=== PATIENT | female | born 1960 | race Caucasian/White ===

== ENCOUNTER 2017-07-30 13:43 | Emergency (ER) | payer OTHER ==
[~2017-07-30] VITALS: Ht 167.6 cm; Wt 127.0 kg
--- OUTSIDE RECORDS SUMMARY | ~2017-07-30 | XMS | Clinical Summary ---
Demographics + + + | Address | [address] | | | [place] [address] | + + + | Home Phone | | + + + | Preferred Language | Unknown | + + + | Marital Status | Single | + + + | Jehovah'S Witness Affiliation | COG | + + + | Race | White | + + + | Ethnic Group | Not or | + + + Author + + + | Author | NON REVENUE LOCATIONS | + + + | Organization | NON REVENUE LOCATIONS | + + + | Address | Unknown | + + + | Phone | Unavailable | + + + Support + + +---------+ + | Name | Relationship | Address | Phone | + + +---------+ + | DAYRON WARREN | ECON | Unknown | | + + +---------+ + Care Team Providers + +------+ + | Care Gallery Or Museum Technician Name | Role | Phone | + +------+ + | Danny Howe MD | PP | | + +------+ + Source Comments JENELLE is fully live on both [facility] Ambulatory and [facility] InPatient.[facility] Allergies + + + + + + | Active Allergy | Reactions | Severity | Noted | Comments | | | | | Date | | + + + + + + | Codeine | Pruritus | | 10/08/19 | | | | | | 13 | | + + + + + + | Morphine | Airway Constriction | | 10/08/19 | Patient had to be | | | | | 13 | intubated in the | | | | | | past. | + + + + + + Current Medications + + +-------+---------+------+------+-------+ | Prescription | Sig. | Disp. | Refills | Star | End | Statu | | | | | | t | Date | s | | | | | | Date | | | + + +-------+---------+------+------+-------+ | METFORMIN HCL | Take by mouth two | | | | | Activ | | (METFORMIN ORAL) | times daily. | | | | | e | + + +-------+---------+------+------+-------+ | | Take by mouth once | | | | | Activ | | HYDROCHLOROTHIAZIDE | daily in the | | | | | e | | ORAL | morning. | | | | | | + + +-------+---------+------+------+-------+ | METOPROLOL | Take by mouth once | | | | | Activ | | SUCCINATE ORAL | daily in the | | | | | e | | | morning. | | | | | | + + +-------+---------+------+------+-------+ | VILAZODONE | Take by mouth once | | | | | Activ | | HYDROCHLORIDE | daily in the | | | | | e | | (VIIBRYD ORAL) | morning. | | | | | | + + +-------+---------+------+------+-------+ Active Problems + + + | Problem | Noted Date | + + + | Pelvic pain in female | 10/07/2012 | + + + Family History + + +------+ + | Medical History | Relation | Name | Comments | + + +------+ + | Heart Attack | Father | | | + + +------+ + | Heart Attack | Uncle | | | + + +------+ + + +------+--------+ + | Relation | Name | Status | Comments | + +------+--------+ + | Father | | | | + +------+--------+ + | Uncle | | | | + +------+--------+ + Social History + +-------+ +--------+ + | Tobacco Use | Types | Packs/Day | Years | Date | | | | | Used | | + +-------+ +--------+ + | Former Smoker | | | | Quit: 10/07/1985 | + +-------+ +--------+ + + + | Comments: Smoked age [age] | + + + + +---------+ + | Alcohol Use | Drinks/We | oz/Week | Comments | | | ek | | | + + +---------+ + | No | | | | + + +---------+ + + + + | Sex Assigned at | Date Recorded | | | | + + + | Not on file | | + + + Last Filed Vital Signs + + + + | Vital Sign | Reading | Time Taken | + + + + | Blood Pressure | 110/72 | 10/07/2012 8:14 AM PDT | + + + + | Pulse | - | - | + + + + | Temperature | 36.4 C (97.6 F) | 10/07/2012 8:14 AM PDT | + + + + | Respiratory Rate | - | - | + + + + | Oxygen Saturation | - | - | + + + + | Inhaled Oxygen | - | - | | Concentration | | | + + + + | Weight | 112.7 kg (248 lb 6.4 | 10/07/2012 8:14 AM PDT | | | oz) | | + + + + | Height | 167.6 cm (5' 6") | 10/07/2012 8:14 AM PDT | + + + + | Body Mass Index | 40.09 | 10/07/2012 8:14 AM PDT | + + + + Plan of Treatment + + + + + | Health Maintenance | Due Date | Last Done | Comments | + + + + + | MAMMOGRAM | | | | | | 2 | | | + + + + + | INFLUENZA VACCINE | | | | | (FLU SHOT) | 7 | | | + + + + + Results Not on filefrom Last 3 Months
--- OUTSIDE RECORDS SUMMARY | ~2017-07-30 | XMS | Clinical Summary ---
Demographics + + + | Address | [address] | | | [place] [address] | + + + | Home Phone | | + + + | Preferred Language | Unknown | + + + | Marital Status | Single | + + + | Restoration Affiliation | COG | + + + [...] Team Providers + +------+ + | Care Rivet Machine Operator Name | Role | Phone | + +------+ + | Danny Howe MD | PP | | + +------+ + Source Comments JENELLE is fully live on both [facility] Ambulatory and [facility] InPatient.[facility] Allergies + + + + + + [...]
[~2017-07-30 13:43] MED LIST: ABILIFY5 MG PO; BACTRIM DS TAB1 EACH PO; BUPROPION XL150 MG PO; FIORINAL 50-321 EACH PO; HYDROCHLOROTH12.5 MG PO; KEFLEX500 MG PO; METFORMIN HCL500 MG PO; METHYLPHENIDATE10 M1 PO; METOPROLOL SUCC25 MG PO; NORCO 5-325 TA1 EACH PO; VIIBRYD40 MG PO; ZOFRAN4 MG PO
[2017-07-30] MEDS ORDERED: ROSUVASTATIN CAL5 MG PO (13:54)
== END 2017-07-30 15:30 | disposition home or self-care (01) ==
LOC: ED 13:43
DX: S63.502A Unspecified sprain of left wrist, initial encounter (principal); E11.9 Type 2 diabetes mellitus without complications; I10 Essential (primary) hypertension; Z88.5 Allergy status to narcotic agent; Z79.899 Other long term (current) drug therapy; W18.30XA Fall on same level, unspecified, initial encounter
CPT/HCPCS: 73110; 99283

== ENCOUNTER 2019-08-04 18:02 | Emergency (ER) | payer OTHER ==
[~2019-08-04] VITALS: Ht 167.6 cm; Wt 131.1 kg
[~2019-08-04 18:02] MED LIST changes: +ROSUVASTATIN CAL5 MG PO
--- OUTSIDE RECORDS SUMMARY | 2019-08-04 18:04 | XMS ---
PreManage Notification: KEVIN MCKENZIE Security Payroll Supervisor Events No recent Security Events currently on file [facility] There are no care providers on record at this time. [place] has no Care Guidelines for this patient. [place] VISIT COUNT (12 MO.) 1 [facility] TOTAL 1 NOTE: Visits indicate total known visits. ED/C VISIT TRACKING (12 MO.) 08/04/2019 18:02 [facility] [place] TYPE: Emergency COMPLAINT: - CHEST PAIN INPATIENT VISIT TRACKING (12 MO.) No inpatient visits to display in this time frame [email or web address]
--- NOTE | 2019-08-04 20:57 | EKG ---
[facility] [address] [place] [address] Signed Normal sinus rhythm Normal ECG No previous ECGs available Confirmed by CARO LEYVA MD ([id number]) on 08/04/2019 8:57:42 PM Electronically Signed By: CARO LEYVA MD 08/04/192056 PATIENT NAME: KEVIN MCKENZIE Electrocardiogram DATE OF : 62 PHYSICIAN: CARO LEYVA MD REPORT #: [id number] REPORT IS CONFIDENTIAL AND NOT TO BE RELEASED WITHOUT AUTHORIZATION
== END 2019-08-04 21:50 | disposition home or self-care (01) ==
LOC: ED 18:02
DX: R07.9 Chest pain, unspecified (principal); I10 Essential (primary) hypertension; Z87.891 Personal history of nicotine dependence; Z88.5 Allergy status to narcotic agent; Z79.899 Other long term (current) drug therapy
CPT/HCPCS: 71045; 80053; 83735; 84484; 85025; 93005; 93010; 99285-25

== ENCOUNTER 2020-07-06 09:49 | Emergency (ER) | payer OTHER ==
[~2020-07-06] VITALS: Ht 167.6 cm; Wt 131.1 kg
[2020-07-06] MEDS ORDERED: ESCITALOPRAM OX20 MG PO (10:16)
[2020-07-06] MEDS ORDERED: BUPROPION XL150 MG PO (10:16)
[2020-07-06] MEDS ORDERED: HYDROCHLOROTH12.5 MG PO (10:16)
[2020-07-06] MEDS ORDERED: PEPCID20 MG PO (12:16)
[2020-07-06] MEDS ORDERED: MEDROL4 M1 PO (12:16)
--- NOTE | 2020-07-06 15:31 | EKG ---
[facility] [address] [place], [place] [address] Signed Sinus rhythm with occasional premature ventricular complexes Otherwise normal ECG Confirmed by ANGELA BROWNE DO ([id number]) on 07/06/2020 3:31:10 PM Electronically Signed By: ANGELA BROWNE DO 07/06/20 1531 PATIENT NAME: KEVIN WARREN Electrocardiogram DATE OF : 62 PHYSICIAN: ANGELA BROWNE DO REPORT #: [id number] REPORT IS CONFIDENTIAL AND NOT TO BE RELEASED WITHOUT AUTHORIZATION
== END 2020-07-06 12:30 | disposition home or self-care (01) ==
LOC: ED 09:49
DX: T80.62XA Other serum reaction due to vaccination, initial encounter (principal); R13.10 Dysphagia, unspecified; T50.B95A Adverse effect of other viral vaccines, initial encounter; R06.00 Dyspnea, unspecified; E11.9 Type 2 diabetes mellitus without complications; I10 Essential (primary) hypertension; Z87.891 Personal history of nicotine dependence; Z88.5 Allergy status to narcotic agent; Z79.899 Other long term (current) drug therapy
CPT/HCPCS: 71045; 93005; 93010; 96374; 96375; 99284-25; J1100; J2405

== ENCOUNTER 2020-09-18 17:46 | Emergency (ER) | payer OTHER ==
[~2020-09-18] VITALS: Ht 167.6 cm; Wt 131.1 kg
[~2020-09-18 17:46] MED LIST changes: +ESCITALOPRAM OX20 MG PO; +MEDROL4 M1 PO; +PEPCID20 MG PO
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
== END 2020-09-18 18:54 | disposition home or self-care (01) ==
LOC: ED 17:46
DX: T18.9XXA Foreign body of alimentary tract, part unspecified, initial encounter (principal); E11.9 Type 2 diabetes mellitus without complications; I10 Essential (primary) hypertension; Z88.5 Allergy status to narcotic agent; Z79.899 Other long term (current) drug therapy; Z79.52 Long term (current) use of systemic steroids
CPT/HCPCS: 99283

== ENCOUNTER 2020-12-29 15:57 | Emergency (ER) | payer OTHER ==
[~2020-12-29] VITALS: Ht 167.6 cm; Wt 124.7 kg
--- OUTSIDE RECORDS SUMMARY | 2020-12-29 16:00 | XMS ---
PreManage Notification: KEVIN WARREN Security Tip Fixer Events No recent Security Events currently on file CRITERIA MET - PDMP CARE PROVIDERS [facility] [place] Internal [facility] 08/05/2019-Current PHONE: [phone] [place] has no Care Guidelines for this patient. [place] VISIT COUNT (12 MO.) 3 [facility] TOTAL 3 NOTE: Visits indicate total known visits. ED/UCC VISIT TRACKING (12 MO.) 12/29/2020 15:58 [facility] [place] TYPE: Emergency COMPLAINT: - FEVER, DIZZINESS, CHILLS 09/18/2020 17:47 [facility] [place] TYPE: Emergency COMPLAINT: - SWALLOED FOREIGN OBJECY DIAGNOSES: - half-way (current) use of systemic steroids - Foreign body of alimentary tract, part unspecified, initial encounter - Type 2 diabetes mellitus without complications - Essential (primary) hypertension - Allergy status to narcotic agent - Other ferry terminal agent (current) drug therapy 07/06/2020 09:50 [facility] [place] TYPE: Emergency COMPLAINT: - ALLERGIC REACTION DIAGNOSES: - Allergy status to narcotic agent - Essential (primary) hypertension - Dysphagia, unspecified - Other senior living (current) drug therapy - Personal history of nicotine dependence - Other serum reaction due to vaccination, initial encounter - Type 2 diabetes mellitus without complications - Adverse effect of other viral vaccines, initial encounter - Dyspnea, unspecified - Other serum reaction due to vaccination, initial encounter INPATIENT VISIT TRACKING (12 MO.) No inpatient visits to display in this time frame [id number]
[2020-12-29] MEDS ORDERED: OZEMPIC0.25 MG/0. SUB-Q (16:26)
[2020-12-29] MEDS ORDERED: CEPHALEXIN500 M1 PO (18:16)
== END 2020-12-29 19:56 | disposition home or self-care (01) ==
LOC: ED 15:57
DX: L03.115 Cellulitis of right lower limb (principal); E11.9 Type 2 diabetes mellitus without complications; I10 Essential (primary) hypertension; Z88.5 Allergy status to narcotic agent; Z79.899 Other long term (current) drug therapy
CPT/HCPCS: 71045; 80053; 81001; 83605; 85007; 85025; 96365; 96375; 99283-25; J0696; J2405; J7030

== ENCOUNTER 2021-01-07 08:54 | Emergency (ER) | payer OTHER ==
[~2021-01-07] VITALS: Ht 167.6 cm; Wt 124.7 kg
[~2021-01-07 08:54] MED LIST changes: +CEPHALEXIN500 M1 PO; +OZEMPIC0.25 MG/0. SUB-Q
--- OUTSIDE RECORDS SUMMARY | 2021-01-07 08:56 | XMS ---
PreManage Notification: KEVIN WARREN Security Parcel Wrapper Events No recent Security Events currently on file CRITERIA MET - [facility] - 2 Visits in 30 Days CARE PROVIDERS [place] [place] Internal Medicine 08/05/2019-Current PHONE: [phone] [place] has no Care Guidelines for this patient. [place] VISIT COUNT (12 MO.) [address] TOTAL 5 NOTE: Visits indicate total known visits. ED/UCC VISIT TRACKING (12 MO.) 01/07/2021 08:55 [facility] [place] TYPE: Emergency COMPLAINT: - RIGHT LEG SKIN PROBLEM 01/01/2021 18:50 [facility] TYPE: Emergency COMPLAINT: - CELLULITUS LE FEVER DIAGNOSES: - Type 2 diabetes mellitus without complications - CONTACT WITH AND (SUSPECTED) EXPOSURE TO COVID-19 - Rash and other nonspecific skin eruption - Pain in right leg 12/29/2020 15:58 [facility] [place] TYPE: Emergency COMPLAINT: - FEVER, DIZZINESS, CHILLS DIAGNOSES: - Allergy status to narcotic agent - Fever, unspecified - Cellulitis of right lower limb - Other intermediate designer (current) drug therapy - Type 2 diabetes mellitus without complications - Essential (primary) hypertension 09/18/2020 17:47 [facility] [place] TYPE: Emergency COMPLAINT: - SWALLOED FOREIGN OBJECY DIAGNOSES: - intermodal customer service (current) use of systemic steroids - Foreign body of alimentary tract, part unspecified, initial encounter - Type 2 diabetes mellitus without complications - Essential (primary) hypertension - Allergy status to narcotic agent - Other prison (current) drug therapy 07/06/2020 09:50 [facility] [place] TYPE: Emergency COMPLAINT: - ALLERGIC REACTION DIAGNOSES: - Allergy status to narcotic agent - Essential (primary) hypertension - Dysphagia, unspecified - Other prison (current) drug therapy - Personal history of nicotine dependence - Other serum reaction due to vaccination, initial encounter - Type 2 diabetes mellitus without complications - Adverse effect of other viral vaccines, initial encounter - Dyspnea, unspecified - Other serum reaction due to vaccination, initial encounter INPATIENT VISIT TRACKING (12 MO.) No inpatient visits to display in this time frame [id number]
[2021-01-07] MEDS ORDERED: CLINDAMYCIN HC300 MG PO (09:18)
[2021-01-07] MEDS ORDERED: RIFAMPIN300 MG PO (09:18)
== END 2021-01-07 12:27 | disposition home or self-care (01) ==
LOC: ED 08:54
DX: L03.115 Cellulitis of right lower limb (principal); E11.9 Type 2 diabetes mellitus without complications; I10 Essential (primary) hypertension; Z88.5 Allergy status to narcotic agent; Z79.899 Other long term (current) drug therapy
CPT/HCPCS: 80048; 83605; 85025; 85651; 87040; 96374; 99283-25; J0696

== ENCOUNTER 2022-07-16 13:47 | Emergency (ER) | payer OTHER ==
[~2022-07-16] VITALS: Ht 167.6 cm; Wt 124.7 kg
--- NOTE | ~2022-07-16 | EKG ---
[facility] [address] [place], [place] [address] Draft EK completed, results pending confirmation PATIENT NAME: KEVIN WARREN Electrocardiogram DATE OF : 62 PHYSICIAN: PRELIMINARY REPORT #: [id number] REPORT IS CONFIDENTIAL AND NOT TO BE RELEASED WITHOUT AUTHORIZATION
[~2022-07-16 13:47] MED LIST changes: +CLINDAMYCIN HC300 MG PO; +RIFAMPIN300 MG PO
--- OUTSIDE RECORDS SUMMARY | 2022-07-16 14:27 | XMS ---
PreManage Notification: KEVIN WARREN Security Flooring Sales Manager Events No recent Security Events currently on file CRITERIA MET - PDMP CARE PROVIDERS [facility] [place] Internal Medicine 08/05/2019-Current PHONE: Unknown [place] has no Care Guidelines for this patient. [place] VISIT COUNT (12 MO.) 1 [facility] TOTAL 1 NOTE: Visits indicate total known visits. ED/UCC VISIT TRACKING (12 MO.) 07/16/2022 13:48 [facility] [place] TYPE: Emergency COMPLAINT: - CHEST PAIN, VOMITING, NAUSEA INPATIENT VISIT TRACKING (12 MO.) No inpatient visits to display in this time frame [id number]
[2022-07-16] MEDS ORDERED: METHYLPHENIDATE20 MG PO (15:09)
[2022-07-16] MEDS ORDERED: ROSUVASTATIN CAL5 MG PO (15:09)
== END 2022-07-16 17:03 | disposition home or self-care (01) ==
LOC: ED 13:47
DX: R07.9 Chest pain, unspecified (principal); I10 Essential (primary) hypertension; E11.9 Type 2 diabetes mellitus without complications; Z88.5 Allergy status to narcotic agent; Z79.899 Other long term (current) drug therapy
CPT/HCPCS: 36415; 71045; 80053; 83735; 84484; 85025; 93005; 93010; 99285-25; A9270

== ENCOUNTER 2022-11-20 15:39 | Emergency (ER) | payer OTHER ==
[~2022-11-20] VITALS: Ht 167.6 cm; Wt 130.0 kg
[~2022-11-20 15:39] MED LIST changes: +METHYLPHENIDATE20 MG PO
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
[2022-11-20 18:08] VITALS: BP 125/72
== END 2022-11-20 18:03 | disposition home or self-care (01) ==
LOC: ED 15:39
DX: S16.1XXA Strain of muscle, fascia and tendon at neck level, initial encounter (principal); S40.011A Contusion of right shoulder, initial encounter; E11.9 Type 2 diabetes mellitus without complications; I10 Essential (primary) hypertension; V89.2XXA Person injured in unspecified motor-vehicle accident, traffic, initial encounter; Z88.5 Allergy status to narcotic agent; Z79.899 Other long term (current) drug therapy
CPT/HCPCS: 72125; 73030

== ENCOUNTER 2024-03-15 10:43 | Emergency (ER) | payer OTHER ==
[~2024-03-15] VITALS: Ht 167.6 cm; Wt 137.5 kg
[2024-03-15 11:33] LABS: HEMATOCRIT 41.7 % (35.0-50.0); MCH 30.6 (27-36); MCHC 33.7 g/dl (30-36); MCV 90.7 fl (81-99); PLATELET COUNT 278 K/uL (140-440); RBC 4.59 M/ul (4.3-5.7); RDW 13.8 (10.5-15.0)
[2024-03-15 11:47] LABS: ALBUMIN 3.9 g/dL (3.4-5.0); ALBUMIN/GLOBULIN RATIO 0.95 (1.1-2.4); ANION GAP 12.9 (7-21); BILIRUBIN, TOTAL 0.3 ng/dL (0.2-1.0); BUN/CREATININE RATIO 8.91 (6.0-28.6); CALCIUM 10.1 mg/dL (8.5-10.1); CREATININE, SERUM 1.01 mg/dL (0.55-1.02); POTASSIUM 3.9 mmol/L (3.5-5.1)
[2024-03-15 11:50] LABS: BANDS, MANUAL DIFF 3; EOSINOPHILS, MANUAL DIFF 1; LYMPHOCYTES, MANUAL DIFF 45; MONOCYTES, MANUAL DIFF 7; NEUTROPHILS, MANUAL DIFF 44
[2024-03-15 12:38] VITALS: BP 144/78
== END 2024-03-15 12:39 | disposition home or self-care (01) ==
LOC: ED 10:43
PROVIDERS: Emergency Medicine
DX: J06.9 Acute upper respiratory infection, unspecified (principal); E11.9 Type 2 diabetes mellitus without complications; I10 Essential (primary) hypertension; E66.9 Obesity, unspecified; Z68.42 Body mass index [BMI] 45.0-49.9, adult; Z88.5 Allergy status to narcotic agent; Z88.7 Allergy status to serum and vaccine; Z79.899 Other long term (current) drug therapy
CPT/HCPCS: 36415; 71045; 80053; 85025; 99283-25

== ENCOUNTER 2024-06-24 15:14 | Emergency (ER) | payer OTHER ==
[~2024-06-24] VITALS: Ht 167.6 cm; Wt 132.4 kg
[2024-06-24] MEDS ORDERED: KETOROLAC TROMETHAMINE 60 MG/2 ML VIAL IM ONE (17:30)
[2024-06-24] MEDS ORDERED: HYDROCODONE/ACETA 7.5/325 TAB PO ONE (17:30)
[2024-06-24] MEDS ORDERED: LIDOCAINE HCL 4% 1 EACH PATCH TD ONE (17:30)
[2024-06-24] MEDS ORDERED: HYDROCODON-ACE1 EA11 PO (18:45)
[2024-06-24] MEDS ORDERED: HYDROCODONE BIT/ACETAMINOPHEN 5/325 MG 1 TAB HOME.PACK PO ONE (18:45)
[2024-06-24 18:56] VITALS: BP 131/79
== END 2024-06-24 19:02 | disposition home or self-care (01) ==
LOC: ED 15:14
DX: S39.92XA Unspecified injury of lower back, initial encounter (principal); E11.9 Type 2 diabetes mellitus without complications; I10 Essential (primary) hypertension; M10.9 Gout, unspecified; Z98.890 Other specified postprocedural states; Z88.7 Allergy status to serum and vaccine; Z88.5 Allergy status to narcotic agent; Z79.899 Other long term (current) drug therapy; W00.0XXA Fall on same level due to ice and snow, initial encounter
CPT/HCPCS: 96372; 99282; A9270; J1885

== ENCOUNTER 2025-04-09 07:02 | Emergency (ER) | payer OTHER ==
[~2025-04-09] VITALS: Ht 167.6 cm; Wt 133.7 kg
[~2025-04-09 07:02] MED LIST changes: +HYDROCODON-ACE1 EA11 PO
[2025-04-09 07:37] LABS: BASOPHILS 0.7 % (0.1-1.2); EOSINOPHILS 2.0 % (0.7-5.8); LYMPHOCYTES 36.7 % (19.3-51.7); MCH 31.0 PG (25.6-32.2); MCHC 34.1 g/dL (32.2-35.5); MCV 90.8 fL (79.4-94.8); MONOCYTES 5.4 % (4.7-12.5); NEUTROPHILS 54.1 % (34.0-71.1); RBC 4.58 M/uL (3.93-5.22)
[2025-04-09 07:49] LABS: ALT (SGPT) 39.0 U/L (14-59); AST (SGOT) 27.0 U/L (15-37); GLOMERULAR FILTRATION RATE,EST 69.0 mL/min (>60); PROTEIN, TOTAL 7.3 g/dL (6.4-8.2); UREA NITROGEN 10.0 mg/dL (7-18)
[2025-04-09] MEDS ORDERED: PROCHLORPERAZINE EDISYLATE 10 MG/2 ML VIAL IV ONE (09:30)
[2025-04-09] MEDS ORDERED: SODIUM CHLORIDE 0.9% 1,000 ML IV PRN (09:30)
[2025-04-09] MEDS ORDERED: KETOROLAC TROMETHAMINE 15 MG/ML VIAL IV ONE (09:30)
[2025-04-09 10:45] VITALS: BP 107/52
--- NOTE | 2025-04-10 15:15 | EKG ---
[facility] [address] [place], [place] [address] Signed Normal sinus rhythm Normal ECG When compared with ECG of 16-JUL-2022 13:57, No significant change was found Confirmed by MIGUEL RODRIGUEZ MD ([id number]) on 04/10/2025 3:14:53 PM Electronically Signed By: MIGUEL RODRIGUEZ 04/10/25 1515 PATIENT NAME: KEVIN WARREN Electrocardiogram DATE OF : 62 PHYSICIAN: MIGUEL RODRIGUEZ REPORT #: [id number] REPORT IS CONFIDENTIAL AND NOT TO BE RELEASED WITHOUT AUTHORIZATION
== END 2025-04-09 10:25 | disposition home or self-care (01) ==
LOC: ED 07:02
PROVIDERS: Emergency Medicine
DX: R51.9 Headache, unspecified (principal); E11.9 Type 2 diabetes mellitus without complications; I10 Essential (primary) hypertension; Z88.7 Allergy status to serum and vaccine; Z88.5 Allergy status to narcotic agent; Z79.899 Other long term (current) drug therapy
CPT/HCPCS: 36415; 70450; 70496; 70498; 71045; 80053; 84484; 85025; 93005; 93010; 96374; 96375; 99284-25; J0780; J1200; J1885; J7030; Q9967